=== PATIENT | male | born 1975 | race African-American/Black ===

== ENCOUNTER 2021-10-25 07:25 | Emergency (ER) | payer MEDICAID ==
[~2021-10-25] VITALS: Ht 175.3 cm; Wt 97.5 kg
[2021-10-25 07:25] VITALS: BP_SYST 162
[2021-10-25] MEDS ORDERED: KETOROLAC TROMETHAMINE 30 MG VIAL IM ONE (07:45)
[2021-10-25] MEDS ORDERED: IBUP-1969 PO (08:19)
[2021-10-25 08:29] VITALS: BP_SYST 130
== END 2021-10-25 08:27 | disposition home or self-care (01) ==
LOC: SED 07:25
DX: S80.11XA Contusion of right lower leg, initial encounter (principal); Z79.899 Other long term (current) drug therapy; W18.39XA Other fall on same level, initial encounter; Y93.89 Activity, other specified; Y92.89 Other specified places as the place of occurrence of the external cause; Y99.8 Other external cause status
CPT/HCPCS: 73590; 96372; 99283; J1885